=== PATIENT | male | born 1995 | race Caucasian/White ===

== ENCOUNTER 2019-01-16 18:02 | Emergency (ER) | payer OTHER, BC ==
[~2019-01-16] VITALS: Ht 177.8 cm; Wt 90.7 kg
[2019-01-16] MEDS ORDERED: CLON.5 PO (18:07)
[2019-01-16] MEDS ORDERED: Zoloft50 MG PO (18:07)
[2019-01-16] MEDS ORDERED: KETO10 PO (18:58)
== END 2019-01-16 19:10 | disposition home or self-care (01) ==
LOC: ER 18:02
DX: S53.401A Unspecified sprain of right elbow, initial encounter (principal); S80.212A Abrasion, left knee, initial encounter; S00.81XA Abrasion of other part of head, initial encounter; V43.52XA Car driver injured in collision with other type car in traffic accident, initial encounter; Z79.899 Other long term (current) drug therapy
CPT/HCPCS: 73080; 73564; 90471; 90714; 99284-25